=== PATIENT | female | born 1980 | race Caucasian/White ===

== ENCOUNTER → 2020-09-29 08:43 | Outpatient (CLI) | payer OTHER, SELFPAY ==
[2020-09-29 10:34] LABS: Progesterone Level 43.14 ng/mL (See Comment)
[2020-09-29 10:42] LABS: Estradiol 125.8 pg/mL
[2020-09-29 10:46] LABS: hCG Titer Quant., Serum 1191 mIU/mL (1-3)
== END ==
PROVIDERS: Referring Provider Obstetrics & Gynecology; Visit Provider Obstetrics & Gynecology
DX: E28.9 Ovarian dysfunction, unspecified (principal)
CPT/HCPCS: 36415; 82627; 82670; 84144; 84702; 82626

== ENCOUNTER → 2020-10-06 07:53 | Outpatient (CLI) | payer OTHER, SELFPAY ==
[2020-10-06 08:47] LABS: Estradiol 161.2 pg/mL
[2020-10-06 09:03] LABS: hCG Titer Quant., Serum 12560 mIU/mL (1-3)
[2020-10-06 11:28] LABS: Progesterone Level 30.01 ng/mL (See Comment)
== END ==
PROVIDERS: Referring Provider Obstetrics & Gynecology; Visit Provider Obstetrics & Gynecology
DX: N96 Recurrent pregnancy loss (principal)
CPT/HCPCS: 36415; 82627; 82670; 84144; 84702; 82626

== ENCOUNTER → 2020-10-12 10:57 | Outpatient (CLI) | payer OTHER, SELFPAY ==
[2020-10-12 11:51] LABS: Estradiol 422.7 pg/mL
[2020-10-12 12:08] LABS: hCG Titer Quant., Serum 45453 mIU/mL (1-3)
[2020-10-12 13:24] LABS: Color, Urine Yellow (Yellow); Glucose, Dipstick Normal (Normal); Ketone-Dipstick Negative (Negative); Leukocyte Esterase-Dipstick Negative /ul (Negative); Nitrite-Dipstick Negative (Negative); Occult Blood-Urine Negative /ul (Negative); Protein-Dipstick Negative (Negative); Specific Gravity, Urine 1.015 (1.002-1.030); Urine Bilirubin Dipstick Negative (Negative); Urine Clarity Sl. Cloudy (Clear); Urine Urobilinogen Normal (Normal)
[2020-10-12 13:28] LABS: Absolute Lymphocyte Count 2.08 X10^3/uL (0.83-4.51); Basophil# 0.07 X10^3/uL; Basophil% 0.8 % (0-1); Eosinophil# 0.05 X10^3/uL; Eosinophils% 0.6 % (0-5); Hematocrit 41.1 % (37-47); Hemoglobin 13.8 g/dL (12.0-15.0); Lymphocyte # 2.08 X10^3/ul (0.83-4.51); Lymphocyte % 23.2 % (19-41); Mean Corp Hgb Conc 33.6 g/dL (32-36); Mean Corpuscular Hgb 31.9 pg (27.0-32.0); Mean Corpuscular Volume 95.1 fL (81-99); Mean Platelet Vol. 9.8 fl (6.2-12.0); Monocyte# 0.77 X10^3/uL; Monocyte% 8.6 % (0-10); NRBC Flagged by Analyzer 0 % (0-5); Neutrophil # 5.95 X10^3/uL (2.7-7.7); Neutrophil % 66.4 % (47-70); Platelet Count 363 K/mm3 (150-450); RBC Distribution Width CV 11.5 % (11.6-14.6); RBC Distribution Width SD 39.9 fl (35.1-43.9); Red Blood Count 4.32 M/mm3 (4.2-5.4)
[2020-10-12 13:38] LABS: Amphetamine Urine VISTA NEGATIVE (<1000 ng/mL); Barbiturate Urine VISTA NEGATIVE (< 200 ng/mL); Benzodiazepine Urine VISTA NEGATIVE (< 200 ng/mL); Cocaine Urine VISTA NEGATIVE (< 300 ng/mL); Ecstacy Urine VISTA NEGATIVE (< 500 ng/mL); Methadone Urine VISTA NEGATIVE (< 300 ng/mL); PCP Urine VISTA NEGATIVE (< 25 ng/mL); THC Urine VISTA NEGATIVE (< 50 ng/mL); Vista UDS pH Range 5
[2020-10-12 14:14] LABS: HIV - WCH Non-Reactive (Nonreactive); Hepatitis B Surface Antigen Non-Reactive (Nonreactive); Hepatitis C Antibody Non-Reactive (Nonreactive); Rubella IgG Reactive (Nonreactive); Syphilis Antibodies Non-reactive
[2020-10-13 20:08] LABS: Chlamydia By Nucleic Acid AMP Negative (Negative)
[2020-10-13 20:25] LABS: Gonococcus By Nucleic Acid AMP Negative (Negative)
== END ==
PROVIDERS: Referring Provider Obstetrics & Gynecology; Visit Provider Obstetrics & Gynecology
DX: N96 Recurrent pregnancy loss (principal); Z11.3 Encounter for screening for infections with a predominantly sexual mode of transmission; Z34.81 Encounter for supervision of other normal pregnancy, first trimester
CPT/HCPCS: 36415; 80307; 81002; 82627; 82670; 84144; 84702; 85025; 86703; 86762; 86780; 86803; 87086; 87088; 87340; 87491; 87591; 82626

== ENCOUNTER → 2020-10-20 15:08 | Outpatient (CLI) | payer OTHER, SELFPAY ==
[2020-10-20 17:42] LABS: Progesterone Level 46.94 ng/mL (See Comment)
[2020-10-20 17:46] LABS: Estradiol 378.6 pg/mL
== END ==
PROVIDERS: Visit Provider Obstetrics & Gynecology
DX: E28.8 Other ovarian dysfunction (principal); N96 Recurrent pregnancy loss
CPT/HCPCS: 36415; 82670; 84144